=== PATIENT | male | born 1965 | race African-American/Black ===

== ENCOUNTER 2016-10-26 07:44 | Emergency (ER) | payer MEDICAID ==
[~2016-10-26] VITALS: Ht 175.3 cm; Wt 102.1 kg
[2016-10-26 07:53] VITALS: BP 149/91
[2016-10-26] MEDS ORDERED: KETOROLAC TROMETH 60MG/2ML VIAL IM ONE (08:15)
== END 2016-10-26 08:34 | disposition home or self-care (01) ==
LOC: ER 07:46
DX: S39.012A Strain of muscle, fascia and tendon of lower back, initial encounter (principal); E11.9 Type 2 diabetes mellitus without complications; E78.5 Hyperlipidemia, unspecified; I10 Essential (primary) hypertension; M10.9 Gout, unspecified; X50.1XXA Overexertion from prolonged static or awkward postures, initial encounter; Y93.B9 Activity, other involving muscle strengthening exercises; Y99.8 Other external cause status; Y92.89 Other specified places as the place of occurrence of the external cause; Z88.0 Allergy status to penicillin
CPT/HCPCS: 96372; 99283; J1885